=== PATIENT | male | born 1975 | race Caucasian/White ===

== ENCOUNTER → 2021-06-30 | Outpatient (CLI) | payer OTHER, SELFPAY ==
--- NOTE | 2021-06-30 07:30 | VAS_PTH ---
PATIENT: VANESA PARR [id number] AGE/SX: 45/M ROOM: RE06/30/[address]: Dr. Wali Polk MD : 1975 BED: DIS: 06/30/2021 SPEC #: [id number] RECD: 06/30/21 10:24 STATUS: CONCETTA RERoni #: [id number] CINDY: 06/30/21 07:[address]: Wali Polk DEPT: SURGICAL PATHOLOGY RECD BY: Eugenia Tran ENTERED: 06/30/21 11:15 SP TYPE: VAS OTHR DR: Janie Primary [facility] Phys Tissues: A - Vas deferens, NOS B - Vas deferens, NOS Procedures: Surgery Specimen Level II HEADER OPERATION: Bilateral partial vasectomy PRE-OP DIAGNOSIS: Sterilization TISSUE SUBMITTED: A ? Right vas deferens, B ? Left vas deferens MICROSCOPIC DIAGNOSIS A. Right vas deferens, segmental vasectomy: Complete segment of vas deferens with no pathologic change. B. Left vas deferens, segmental vasectomy: Complete segment of vas deferens with no pathologic change. AM:[place] 07/01/2021 MICROSCOPIC DESCRIPTION Slides are reviewed. GROSS DESCRIPTION A - Received is one container designated right vas deferens. The specimen consists of a tubular segment of mcdowell soft tissue measuring 1.1 cm in length and 0.2 cm in diameter. The specimen is sectioned and submitted entirely in one cassette. B - Received is one container designated left vas deferens. The specimen consists of a tubular segment of mcdowell soft tissue measuring 1.2 cm in length and 0.2 cm in diameter. The specimen is sectioned and submitted entirely in one cassette. / SJ:alcon 06/30/21 TC:4 CPT: 67144 x2
== END | disposition home or self-care (01) ==
LOC: LABSPEC 10:45
PROVIDERS: Referring Provider Surgery; Visit Provider Surgery
DX: Z30.2 Encounter for sterilization (principal)
CPT/HCPCS: 88302